=== PATIENT | female | born 1950 | race Caucasian/White ===

== ENCOUNTER 2023-10-27 12:09 | Emergency (ER) | payer MEDICARE, SELFPAY ==
[2023-10-27 12:28] VITALS: BP 140/60; PULSE 75; RESP 16; TEMP 36.8; O2SAT 98; BMI 21.4
--- NOTE | 2023-10-27 12:35 | ED.GENADULT ---
HPI - General Adult General Chief complaint: Nausea/Vomiting/Diarrhea Stated complaint: SOB Needs Electrolytes Sent By PCP History of Present Illness HPI narrative: Patient left before evlauted by ED provider. LEft before medical workup could be done. Related Data Home Medications Medication Instructions Recorded Confirmed amiodarone 200 mg tablet mg PO 10/27/23 apixaban 5 mg tablet (Eliquis) 5 mg PO BID 10/27/23 atorvastatin 40 mg tablet 40 mg PO DAILY 10/27/23 cyanocobalamin (vitamin B-12) 1,000 mcg PO DAILY 10/27/23 1,000 mcg tablet (Vitamin B-12) fludrocortisone 0.1 mg tablet 0.2 mg PO BID 10/27/23 furosemide 20 mg tablet 40 mg PO DAILY 10/27/23 magnesium oxide 400 mg PO DAILY 10/27/23 omeprazole 40 mg capsule,delayed 40 mg PO DAILY 10/27/23 release potassium chloride 10 mEq PO 10/27/23 tablet,extended release ropinirole 0.5 mg tablet 1 mg PO BID 10/27/23 spironolactone 25 mg tablet 25 mg PO DAILY 10/27/23 ursodiol 300 mg capsule 900 mg PO DAILY 10/27/23 Allergies Allergy/AdvReac Type Severity Reaction Status Date / Time NARCOTICS AdvReac Unknown NAUSEA & Uncoded 07/25/20 19:13 VOMITING PMFSH Social History Social History Advance Directives: No Advance Directives Information Provided: No Physical Exam ED Vital Signs: Vital Signs - 24 hr 10/27/23 12:28 Temperature 98.3 F Pulse Rate 75 Respiratory Rate 16 Blood Pressure 140/60 H Pulse Oximetry 98 Oxygen Delivery Method Room Air BMI result Body Mass Index 21.4 Course Course Course Narrative: RME: 72 yold female with pmh of CHF presents to the ED for SOB and diarrhea for one month. Patient also states weight loss. patient states no abdominal pain. Seen at [facility] and [facility]. Vital signs are stables. Labs, EKG, and chest xray ordered. lungs clear 12: 35Pm. patient left the ED with before EKG, chest xray, or labs were drawn. Nurse Jimenes discussed with patient to stay for workup, but patient left. Patient left from waiting room. labs, xray and EKG were were cancelled due to patient leaving Discharge Plan Discharge Clinical Impression: Dyspnea Patient Disposition: Left W/O Completing Treatment Prescriptions: No Action atorvastatin 40 mg tablet 40 mg PO DAILY potassium chloride 10 mEq tablet extended release PO omeprazole 40 mg capsule,delayed release(DR/EC) 40 mg PO DAILY ropinirole 0.5 mg tablet 1 mg PO BID ursodiol 300 mg capsule 900 mg PO DAILY furosemide 20 mg tablet 40 mg PO DAILY Eliquis 5 mg tablet 5 mg PO BID amiodarone 200 mg tablet PO cyanocobalamin (vitamin B-12) [Vitamin B-12] 1,000 mcg tablet 1,000 mcg PO DAILY spironolactone 25 mg tablet 25 mg PO DAILY magnesium oxide 400 mg magnesium capsule 400 mg PO DAILY fludrocortisone 0.1 mg tablet 0.2 mg PO BID Discharge Date/Time: 10/27/23 15:27
--- NOTE | 2023-10-27 13:01 | MHC.EDTECH ---
This pct called patient to conduct an EKG but the patient lwobs.
== END 2023-10-27 15:27 | disposition left against medical advice (07) ==
LOC: HO.ED 15:25
PROVIDERS: Emergency Provider Emergency Medicine; PCP Internal Medicine
DX: R11.2 Nausea with vomiting, unspecified (principal); R06.02 Shortness of breath
CPT/HCPCS: 99281